=== PATIENT | male | born 1980 | race Caucasian/White ===

== ENCOUNTER 2019-05-16 17:26 | Emergency (ER) | payer SELFPAY ==
[~2019-05-16] VITALS: Ht 188 cm; Wt 110.0 kg
[2019-05-16 17:30] VITALS: BP 140/88
[2019-05-16] MEDS ORDERED: ondansetron 4mg rapidly disintigrating tab PO ONE (17:50)
[2019-05-16] MEDS ORDERED: morphine 4 MG/ML inj SYRINge IM ONE (17:50)
[2019-05-16] MEDS ORDERED: TETanus/Pertussis (Acell)/Diphther VAC/PF (Tdap-Adult) 0.5ml syringe IMVAC ONE (18:05)
[2019-05-16] MEDS ORDERED: HYDR-4353 PO (18:44)
[2019-05-16] MEDS ORDERED: BACDS PO (18:44)
[2019-05-16] MEDS ORDERED: IBUP-1984 PO (18:44)
[2019-05-16] MEDS ORDERED: bacitracin 15gm ointment TP ONE (18:50)
== END 2019-05-16 19:50 | disposition home or self-care (01) ==
LOC: ER 17:27
DX: S60.552A Superficial foreign body of left hand, initial encounter (principal); Z88.0 Allergy status to penicillin; Z79.899 Other long term (current) drug therapy; W45.0XXA Nail entering through skin, initial encounter; Y93.89 Activity, other specified; Y92.89 Other specified places as the place of occurrence of the external cause; Y99.8 Other external cause status
CPT/HCPCS: 64450; 73130; 90471; 90715; 99284; J2270; 10120